=== PATIENT | male | born 1995 | race Caucasian/White ===

== ENCOUNTER 2016-03-31 22:37 | Emergency (ER) | payer OTHER ==
[~2016-03-31] VITALS: Ht 177.8 cm; Wt 72.6 kg
[2016-03-31] MEDS ORDERED: IV NORMAL SALINE 1000ML BAG 1,000 ML IV ONE (23:00)
[2016-03-31] MEDS ORDERED: DIPHTH,PERTUSS(ACELL),TET TOX 0.5 ML DISP.SYRIN. VAX IM ONE (23:00)
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
[2016-03-31 23:30] LABS: BACTERIA,URINE 0 /HPF (0-FEW); BILIRUBIN,URINE NEGATIVE (NEG); GLUCOSE,URINE NEGATIVE (NEG); NITRITE,URINE NEGATIVE (NEG); PROTEIN,URINE NEGATIVE (NEG-TRACE); RBC,URINE 0 /HPF (0-2); UROBILINOGEN,URINE 0.2 mg/dL (0.2 mg/dL); WBC,URINE 0 /HPF (0-4)
[2016-03-31 23:39] LABS: BARBITURATES NEG (NEG); BENZODIAZEPINES NEG (NEG); CANNABINOIDS POS (NEG); COCAINE NEG (NEG); METHADONE NEG (NEG); OPIATES NEG (NEG); PHENCYCLIDINE NEG (NEG)
[2016-03-31 23:42] LABS: ETHANOL, URINE POS (NEG)
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
[2016-03-31 23:49] LABS: BASO # 0.1 x10^3/uL (0.0-0.2); BASO % 1 % (0-3); EOS % 6 % (0-3); HEMATOCRIT 47.1 % (39.0-53.0); LYMPH # 2.4 x10^3/uL (1.0-4.8); LYMPH % 28 % (24-48); MEAN CORPUSCULAR HEMOGLOBIN 31 pg (25-35); MEAN CORPUSCULAR HGB CONC 34 g/dL (31-37); MEAN CORPUSCULAR VOLUME 92 fL (79-100); MONO % 6 % (0-9); NEUT % 60 % (31-73); PLATELET COUNT 197 x10^3/uL (140-400); RED CELL DISTRIBUTION WIDTH 12.8 % (11.5-14.5); WHITE BLOOD COUNT 8.5 x10^3/uL (4.0-11.0)
[2016-04-01 00:01] LABS: CALCIUM 8.8 mg/dL (8.5-10.1); GFR 95.3; POTASSIUM 3.7 mmol/L (3.5-5.1)
[2016-04-01 00:06] LABS: ETHANOL 271 mg/dL (0-10)
[2016-04-01] MEDS ORDERED: ONDA4TAB7 PO (00:50)
[2016-04-01 01:07] VITALS: BP 100/55
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
== END 2016-04-01 01:20 | disposition home or self-care (01) ==
LOC: EEVIPCON 22:37 → ER 22:37
DX: S60.512A Abrasion of left hand, initial encounter (principal); S09.8XXA Other specified injuries of head, initial encounter; F10.129 Alcohol abuse with intoxication, unspecified; R41.82 Altered mental status, unspecified; J45.909 Unspecified asthma, uncomplicated; F15.10 Other stimulant abuse, uncomplicated; Z90.89 Acquired absence of other organs; X58.XXXA Exposure to other specified factors, initial encounter; Y93.89 Activity, other specified; Y92.89 Other specified places as the place of occurrence of the external cause; Y99.8 Other external cause status
CPT/HCPCS: 36415; 51701; 70450; 71010; 73130; 80048; 81001; 85027; 90471; 90715; 96360; 96361; 99285; G0480; G0481; G6038; J7030; 80196

== ENCOUNTER 2018-08-18 16:09 | Emergency (ER) | payer OTHER ==
[~2018-08-18] VITALS: Ht 175.3 cm; Wt 68.0 kg
[~2018-08-18 16:09] MED LIST: ONDA4TAB7 PO
[2018-08-18 16:18] VITALS: BP 126/66
[2018-08-18] MEDS ORDERED: METH4TAB2 PO (16:44)
[2018-08-18] MEDS ORDERED: BETA15CR5 TP (16:44)
[2018-08-18] MEDS ORDERED: HYDR25TA PO (16:44)
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
[2018-08-18] MEDS: DEXAMETHASONE SOD PHOS 20 MG/5 ML VIAL. IM ONE (16:50)
== END 2018-08-18 17:13 | disposition home or self-care (01) ==
LOC: ER 16:09
DX: L25.9 Unspecified contact dermatitis, unspecified cause (principal); J45.909 Unspecified asthma, uncomplicated; Z90.89 Acquired absence of other organs
CPT/HCPCS: 96372; 99283; J1100

== ENCOUNTER 2018-09-26 17:01 | Emergency (ER) | payer OTHER ==
[~2018-09-26] VITALS: Ht 175.3 cm; Wt 68.0 kg
[~2018-09-26 17:01] MED LIST changes: +BETA15CR5 TP; +HYDR25TA PO; +METH4TAB2 PO
[2018-09-26 17:50] VITALS: BP 140/79
--- NOTE | 2018-09-26 18:47 | PHYS DOC ---
Past Medical History Past Medical History: Asthma Past Surgical History: Tonsillectomy Alcohol Use: Heavy Drug Use: Methamphetamine Adult General Chief Complaint Chief Complaint: TOE PROBLEM HPI HPI Patient is a 22 year old male who presents to the ED today complaining with 7 out of 10 left great toe pain that began yesterday after he stabbed his great toe playing baseball. Review of Systems Review of Systems Constitutional: Denies fever or chills [] Musculoskeletal: Reports left great toe pain Integument: Denies rash or skin lesions [] Neurologic: Denies headache, focal weakness or sensory changes [] All other systems were reviewed and found to be within normal limits, except as documented in this note. Allergies Allergies Allergies Coded Allergies Type Severity Reaction Last Updated Verified No Known Drug Allergies 06/16/14 No Physical Exam Physical Exam Constitutional: Well developed, well nourished, no acute distress, non-toxic appearance. [] Skin: Warm, dry, no erythema, no rash. [] Back: No tenderness, no CVA tenderness. [] Extremities: Left great toe with no obvious deformity, there is moderate edema and ecchymosis along the left great toe MTP joint. There is tenderness to this region. Limited range of motion to this left great toe due to pain. Adequate sensation to the left foot. +2 left pedal pulse. Cap refill less than 2 seconds the toes. Neurologic: Alert and oriented X 3, normal motor function, normal sensory function, no focal deficits noted. [] Psychologic: Affect normal, judgement normal, mood normal. [] Current Patient Data Vital Signs Vital Signs Date Time Temp Pulse Resp B/P (MAP) Pulse Ox O2 Delivery O2 Flow Rate FiO2 09/26/18 17:50 98.4 63 17 140/79 (99) 96 Room Air 98.4 EKG EKG [] Radiology/Procedures Radiology/Procedures [] Course & Med Decision Making Course & Med Decision Making Pertinent Labs and Imaging studies reviewed. (See chart for details) This is a 22-year-old male patient who presents to the ED today with left great toe pain that began yesterday after stubbing his toe. Left foot x-rays interpreted by Dr. Brooks were noted for avulsion fracture of the distal left first metatarsal. Although shoe provided in the ED by the ED RN, neurovascular exam is intact. Ice elevation. Follow-up with orthopedic doctor in the course of this week. Dragon Disclaimer Dragon Disclaimer This electronic medical record was generated, in whole or in part, using a voice recognition dictation system. Departure Departure Impression: Primary Impression: Fracture of first metatarsal bone Disposition: HOME, SELF-CARE Condition: STABLE Referrals: QUINTON BHATIA MD (PCP) MONA SOSA II, MD follow up in the course of this week Patient Instructions: Metatarsal Fracture with [facility] Additional Instructions: You were evaluated in the emergency room for left foot pain and noted to have an avulsion fracture on the left first metatarsal. Please follow-up with or thopedic doctor provided in the course of this week. Try to ice and elevate the extremity. Take Tylenol/Motrin for pain Problem Qualifiers Primary Impression: Fracture of first metatarsal bone Encounter type: initial encounter Fracture type: closed Fracture alignment: nondisplaced Laterality: left Qualified Codes: S92.315A - Nondisplaced fracture of first metatarsal bone, left foot, initial encounter for closed fracture JONY CHARLES HUMAN RES[employer] BENEFITS ASSISTANT Sep 26, 2018 18:47
--- NOTE | 2018-09-27 00:19 | RAD ---
Three-view left foot radiographs 09/26/2018 CLINICAL HISTORY: Injury to the left first toe. Swelling and pain. AP, lateral and oblique digital radiographs of the left foot were obtained. No fracture or dislocation of the left foot is seen. Mild to moderate degenerative changes are seen involving first MTP joint. IMPRESSION: No fracture or dislocation of the left foot is seen. Electronically signed by: Flaco Pedro MD (09/27/2018 12:16 AM) [facility]
== END 2018-09-26 19:28 | disposition home or self-care (01) ==
LOC: ER 17:01
DX: S92.315A Nondisplaced fracture of first metatarsal bone, left foot, initial encounter for closed fracture (principal); J45.909 Unspecified asthma, uncomplicated; Y90.9 Presence of alcohol in blood, level not specified; F10.20 Alcohol dependence, uncomplicated; Y28.8XXA Contact with other sharp object, undetermined intent, initial encounter; Y93.64 Activity, baseball; Y92.89 Other specified places as the place of occurrence of the external cause; Y99.8 Other external cause status
CPT/HCPCS: 73630; 99284

== ENCOUNTER 2019-10-04 17:56 | Emergency (ER) | payer OTHER ==
[~2019-10-04] VITALS: Ht 175.3 cm; Wt 72.2 kg
[2019-10-04 19:50] VITALS: BP 133/64
[2019-10-04] MEDS ORDERED: PRED20TA PO (20:42)
--- NOTE | 2019-10-04 20:42 | PHYS DOC ---
Past Medical History Past Medical History: Asthma Past Surgical History: Tonsillectomy Smoking Status: Never Smoker Alcohol Use: Occasionally Drug Use: Methamphetamine General Adult EDM: Chief Complaint: SKIN RASH/ABSCESS HPI: HPI: Patient is a 23 year old male who presents to the emergency department with c omplaints of itchy rash that started about 2 weeks ago. Patient states that at first the rash was just on his back but is since developed into a generalized rash. Patient denies any new environmental exposures, medications, detergents, or fragrances. He states that he lives with his brother and they recently brought his brother's dog inside who is also having problems with a rash. Patient denies any fever, cough, or pain. He denies taking Benadryl or [id number]-ptj-[id number] antihistamines for relief of his condition. Review of Systems: Review of Systems: Constitutional: Denies fever or chills. [] HENT: Denies nasal congestion or sore throat. [] Respiratory: Denies cough or shortness of breath. [] Musculoskeletal: Denies back pain or joint pain. [] Integument: See HPI Lymphatic: Denies swollen glands. [] Psychiatric: Denies depression or anxiety. [] Heart Score: Risk Factors: Risk Factors: DM, Current or recent (<one month) smoker, HTN, HLP, family history of CAD, obesity. Risk Scores: Score 0 - 3: 2.5% MACE over next 6 weeks - Discharge Home Score 4 - 6: 20.3% MACE over next 6 weeks - Admit for Clinical Observation Score 7 - 10: 72.7% MACE over next 6 weeks - Early Invasive Strategies Allergies: Allergies: Allergies Coded Allergies Type Severity Reaction Last Updated Verified No Known Drug Allergies 06/16/14 No Physical Exam: PE: Constitutional: Well developed, well nourished, no acute distress, non-toxic appearance. [] HENT: Normocephalic, atraumatic, bilateral external ears normal, nose normal. [] Eyes: PERRLA, EOMI, conjunctiva normal, no discharge. [] Neck: Normal range of motion, no stridor. [] Cardiovascular:Heart rate regular rhythm Lungs & Thorax: Respirations even and unlabored, no retractions, no respiratory distress Skin: Warm, dry, no erythema; scattered flesh-colored papular rash noted to chest and extremities x4; maculopapular erythematous rash noted to back and trunk, concerning for contact dermatitis. Extremities: No cyanosis, ROM intact, no edema. [] Neurologic: Alert and oriented X 3, no focal deficits noted. [] Psychologic: Affect normal, judgement normal, mood normal. [] Current Patient Data: Vital Signs: Vital Signs Date Time Temp Pulse Resp B/P (MAP) Pulse Ox O2 Delivery O2 Flow Rate FiO2 10/04/19 19:50 98.5 76 16 133/64 (87) 98 Room Air 98.5 EKG: EKG: [] Radiology/Procedures: Radiology/Procedures: [] Course & Med Decision Making: Course & Med Decision Making Pertinent Labs and Imaging studies reviewed. (See chart for details) [] Dragon Disclaimer: Dragon Disclaimer: This electronic medical record was generated, in whole or in part, using a voice recognition dictation system. Departure Departure Impression: Primary Impression: Contact dermatitis Qualified Codes: L23.9 - Allergic contact dermatitis, unspecified cause Disposition: HOME, SELF-CARE Condition: STABLE Referrals: NO PCP (PCP) Patient Instructions: Contact Dermatitis, [id number] Additional Instructions: Fill prescription(s) and use as directed. Recommend [id number] Benadryl and [id number] Benadryl itch relief cream or calamine lotion for relief of itching. Be sure to wash all of your bedding and clothing. Follow up with your primary care doctor if symptoms worsen or persist. Scripts Prednisone (PREDNISONE) 20 Mg Tablet 1 TAB PO UD for 12 Days, #15 TAB 2 tabs by mouth days 1,2,3 then 1.5 tabs by mouth days 4,5,6 then 1 tab by mouth days 7,8,9 then 0.5 tab by mouth day 10,11,12 Prov: AURORA MONTALVO APRN 10/04/19 Justicifation of Admission Dx: Justifications for Admission: Justification of Admission Dx: N/A AURORA MONTALVO APRN Oct 04, 2019 20:42
== END 2019-10-04 21:03 | disposition home or self-care (01) ==
LOC: ER 17:56
DX: L25.9 Unspecified contact dermatitis, unspecified cause (principal); R21 Rash and other nonspecific skin eruption; J45.909 Unspecified asthma, uncomplicated; F19.90 Other psychoactive substance use, unspecified, uncomplicated; Z90.89 Acquired absence of other organs
CPT/HCPCS: 99283